=== PATIENT | male | born 1945 | race Caucasian/White ===

== ENCOUNTER 2020-05-05 09:08 | Emergency (ER) | payer MEDICARE, OTHER ==
[2020-05-05 09:38] LABS: Bilirubin Negative (Negative); Blood, Urine Moderate (Negative); Clarity Clear (Clear); Glucose, Urine (Dipstick) Negative (Negative); Ketone, Urine Negative (Negative); Leukocyte Trace (Negative); Nitrite Positive (Negative); Protein, Urine (Dipstick) 30 mg/dL (Neg-Trace); Urobilinogen 0.2 mg/dL (Less than 2)
[2020-05-05 09:42] LABS: pH, Urine Greater/Equal 9.0 (5.0-9.0)
[2020-05-05 09:43] LABS: Bacteria/HPF 2+ HPF (None Seen); Other Microscopic Description C&S SET UP; Squamous Epithelial 0-3 HPF (0-3); Triple Phosphate Crystal 1+ HPF (None Seen); WBC/HPF 0-3 HPF (0-3)
[2020-05-05] MEDS ORDERED: Cefepime 1 GM VIAL ONE (09:52)
[2020-05-05] MEDS ORDERED: Acetaminophen 500 MG TAB ONE (09:52)
[2020-05-05] MEDS ORDERED: Sodium Chloride 0.9% 100 ML ONE (09:52)
[2020-05-05] MEDS ORDERED: Morphine 4 MG/ML VIAL ONE (10:12)
[2020-05-05 10:17] LABS: ALT (SGPT) 18 U/L (8-55); AST (SGOT) 19 U/L (5-34); Alkaline Phosphatase 55 U/L (40-110); Anion Gap 15 mmol/L (10-20); BUN (Urea Nitrogen) 21 mg/dL (8.4-25.7); Band 12 % (5-11); Bilirubin, Total 0.7 mg/dL (0.2-1.2); Calc. Creatinine Clearance 0 mL/min (70-130); Calcium 8.9 mg/dL (7.8-10.44); Carbon Dioxide 22 mmol/L (23-31); Chloride 106 mmol/L (98-107); Globulin 2.5 g/dL (2.4-3.5); Glucose 108 mg/dL (83-110); Hemoglobin 13.9 g/dL (14.0-18.0); Lipase 4 U/L (8-78); Lymphocytes 5 % (21-51); MDiff Complete? YES; Mean Corpuscular HGB CONC 32.3 g/dL (32.0-36.0); Mean Corpuscular Hemoglobin 30.7 pg (27.0-31.0); Mean Corpuscular Volume 95.1 fL (78.0-98.0); Mean Platelet Volume 6.4 fL (7.4-10.4); Neutrophil 83 % (42-75); Platelet Count 118 thou/uL (130-400); Platelet Morphology Comment PLatelet clumping present; Potassium 4.1 mmol/L (3.5-5.1); Protein, Total 6.5 g/dL (5.8-8.1); RBC Distribution Width 11.6 % (11.5-14.5); Red Blood Cell (RBC) Count 4.53 mill/uL (4.70-6.10); Sodium 139 mmol/L (136-145); Vacuoles SLIGHT
[2020-05-05 10:34] LABS: CKMB 1.1 ng/mL (0-6.6)
[2020-05-05] MEDS ORDERED: Aspirin Chewable 81 MG TAB ONE (11:06)
[2020-05-05 12:55] LABS: Lactic Acid 1.7 mmol/L (0.5-2.2)
[2020-05-05 13:02] LABS: SARS-CoV-2 NAA Rapid Test Not Detected (NotDetected)
[2020-05-05] MEDS ORDERED: Ibuprofen 200 MG TAB ONE ×2 (13:27→13:30)
[2020-05-05] MEDS ORDERED: Iopamidol 370 76% 100 ML VIAL ONE (14:19)
--- NOTE | 2020-05-05 16:20 | RAD ---
PORTABLE CHEST: 05/05/20 An AP portable film at 1008 is compared with a 04/22/04 study. The heart is normal in size for positioning and AP technique. There is no vascular congestion, edema , or gross pulmonary infiltrate. IMPRESSION: No acute finding. POS: HOME
--- NOTE | 2020-05-05 16:29 | CT ---
CT CHEST, ABDOMEN AND PELVIS WITH CONTRAST: 05/05/20 Comparison is made with a prior CT abdomen and pelvis of 08/24/19. CT OF THE THORAX WITH CONTRAST: The mediastinum shows a few small scattered lymph nodes, but the number and size were not of signific ance. There is no sign of aortic aneurysm or dissection. No mediastinal mass was seen. The lungs are clear with no acute infiltrate seen. There are a few very small areas of slightly increased lung glenn ings peripherally, such as in the right upper lobe on slice 26 or right lower lobe on slice 29. These could easily be chronic. There is a calcified granuloma in the left lower lobe. There are no effusio n. Overall, the chest was unremarkable. CT of the abdomen shows a large cyst near the dome of the liver that is longstanding and has been see n on prior scans. It measures about 5.2 cm today which is comparable to before. There are a few other smaller cysts scattered in this liver. A minimal low density area in the spleen has been seen previo usly and has not changed. The pancreas showed no acute findings and shows some fatty replacement. The adrenal glands were unremarkable. There has been a prior cholecystectomy. Some renal cysts are sugge sted and have been seen on prior studies, including a hyperdense cyst in the upper pole of the left k idney. The aorta shows no sign of dissection or aneurysm. Some fluid filled loops of small bowel are present but none are dilated or particularly thickened. On e could argue perhaps for some very mild thickening of bowel around the hepatic flexure, but the area is not seen optimally, without some oral contrast. The patient has multiple ventral hernias that bow el and fat herniate into, but all are sufficiently wide mouth such that there is no entrapment or str angulation of bowel in any of them. They were present on prior studies as well. No free air or free f luid was present. CT of the pelvis shows no pelvic masses. Sigmoid diverticulosis is noted. There has been a prior cyst ectomy. IMPRESSION: Chronic and longstanding changes as noted above but no acute findings in the chest, abdomen or pelvis to explain the patient's pain. At most, a few fluid filled loops of small bowel are nonspecific and could signify enteritis, as could some questionable wall thickening around the hepatic flexure. Preliminary report called to Dr. Anderson at 11:03 on 05/05/20. POS: HOME
== END 2020-05-05 13:58 | disposition home or self-care (01) ==
LOC: BURERS 09:08
DX: N12 Tubulo-interstitial nephritis, not specified as acute or chronic (principal); K21.9 Gastro-esophageal reflux disease without esophagitis
CPT/HCPCS: 0240U; 36415; 71045; 71260; 74177; 80053; 81003; 81015; 82553; 83605; 83690; 84484; 85025; 87040; 87077; 87086; 87149; 87186; 93005; 96365; J0692; J2270; J3490; Q9967